=== PATIENT | female | born 1950 | race Caucasian/White ===

== ENCOUNTER 2021-07-04 11:19 | Outpatient (CLI) | payer OTHER, SELFPAY ==
--- NOTE | 2021-07-04 11:24 | CT_ITS ---
STUDY: CARDIAC CALCIUM SCORING - CT CHEST REASON FOR EXAM: Female, 70 years old. HLD. Chest pain. Family history of coronary artery calcification RADIATION DOSAGE (If Supplied By Facility): CTDIvol = ( 12.19 ) mGy, DLP = ( 195.04 ) mGycm TECHNIQUE: Axial non-enhanced images were acquired through the heart for the sole purpose of measuring coronary artery calcium. Individualized dose optimization techniques were used for this CT. COMPARISON: None. FINDINGS: Visualized surrounding anatomy: Normal. Left Main Coronary Artery: 0 Left Anterior Descending Artery: 18.3 Left Circumflex Artery: 0 Right Coronary Artery: Other: Total Calcium Score: 18.3 CT/Limited Chest CT w/CCTA IMPRESSION: A Calcium Score of 18.3 places the patient in the approximate 42 percentile, based on the [facility] data calculator. Please go to: [email or web address] , for a description of the calculator. Electronically Signed: Reagan Smith DO at 23:02 EDT ,
[2021-07-04 11:35] VITALS: BP 103/56; PULSE 63; RESP 14; O2SAT 99; BMI 21.9
--- NOTE | 2021-07-04 17:18 | CA.SCORE ---
Calcium Scoring Date of Study:: 07/04/21 Coronary Calcium Scoring: High-resolution Computed Tomographic imaging of the chest was performed on 07/04/2021 with particular attention paid to the coronary arteries. Images from the examination were analyzed for the presence and extent of coronary artery calcification , using coronary calcium quantification software. The patient tolerated the procedure well and there were no complications. The results of the coronary calcification analysis are provided below. Findings Coronary Artery Left Main (LM): 0 Left Anterior Descending (LAD): 18.3 Left Circumflex (LCX): 0 Right Coronary Artery (RCA): 0 Total Agatston Score: 18.3 Percentile Ranking: According to prepublished reference tables between 25% and 50% of patients of the same gender / similar age had the same / lower scores. Calcium Scoring Interpretation: 0 No identifiable atherosclerotic plaque. Very low cardiovascular disease risk. <5% chance of presence coronary artery disease A Negative Examination 1-10 Minimal Plaque burden. Significant coronary artery disease very unlikely. 11-100 Mild plaque burden. Likely mild or minimal coronary atherosclerosis. 101-400 Moderate plaque burden Moderate non-obstructive coronary artery disease highly likely. Over 400 Extensive plaque burden. High likelihood of at least one significant coronary stenosis (>50% diameter) Calcium Score: 11 - 100 Likely mild or minimal coronary stenosis Conclusion: Continue cardiovascular evaluation / care as deemed appropriate. This note was generated using a voice recognition system and there may be incorrect words, spelling or punctuation that were not noted when reviewing the office note prior to saving.
== END 2021-07-04 23:59 | disposition home or self-care (01) ==
LOC: CT 11:23
PROVIDERS: PCP Family Medicine; Referring Provider Internal Medicine Cardiovascular Disease; Visit Provider Internal Medicine Cardiovascular Disease
DX: R07.9 Chest pain, unspecified (principal); E78.2 Mixed hyperlipidemia; Z82.49 Family history of ischemic heart disease and other diseases of the circulatory system
CPT/HCPCS: 75571; 76380

== ENCOUNTER 2021-07-08 07:29 | Outpatient (CLI) | payer OTHER, SELFPAY ==
--- NOTE | 2021-07-08 13:19 | STRESSREP ---
Stress Test Report Date: 07-08-2021 Procedure: Exercise tolerance test/imaging study Indications: Chest pain Consent: Per the patient Procedure: The patient exercised on a David protocol for 6 minutes completing Stage II achieving a peak heart rate of 131 bpm (86% predicted maximal heart rate) with a peak blood pressure 138/64 mmHg and a peak MET capacity of 7 METs. The baseline ECG demonstrated sinus bradycardia. The peak exercise ECG demonstrated 0.5 mm horizontal/upsloping ST segment depression in leads II, III, aVF, and V3 through V6 with subsequent resolution towards baseline in recovery. There were no cardiac dysrhythmias pretest, during exercise, or recovery. The functional capacity was considered average. There was no complaint of chest discomfort during exercise or recovery. The examination was discontinued secondary to dyspnea and leg fatigue. Impression: 1. Technically adequate (percent predicted maximal heart rate greater than 85%) exercise tolerance test 2. Peak exercise ECG with approximately 0.5 mm horizontal/upsloping ST segment depression in leads II, III, aVF, and V3 through V6 with subsequent resolution towards baseline in recovery 3. There were no cardiac dysrhythmias pretest, during exercise, or recovery 4. Nuclear images pending Myocardial perfusion imaging study: Technique: The patient was injected with 11.7 mCi of technetium 99m Cardiolite and subsequently rest SPECT Cardiolite nuclear imaging was obtained in the horizontal long, vertical long, and short axis views. The patient exercised on a David protocol for 6 minutes completing Stage II achieving a peak heart rate of 131 bpm (86% predicted maximal heart rate) with a peak blood pressure 138/64 mmHg and a peak MET capacity of 7 METs. The patient was injected with 32.8 mCi of technetium 99m Cardiolite and subsequently stress SPECT Cardiolite nuclear imaging was obtained in the horizontal long, vertical long, and short axis views. A gated Cardiolite study at peak stress was obtained. Interpretation: Rest and stress SPECT Cardiolite nuclear imaging status post realignment, normalization, and attenuation correction, demonstrates the appearance of relative uniform tracer uptake and myocardial perfusion appearing within normal limits. There is end systolic thickening and brightening. The gated Cardiolite study demonstrates myocardial thickening and inward wall motion. The reported LVEF is 75%. Impression: 1. Rest and stress SPECT Cardiolite nuclear imaging demonstrate relative uniform tracer uptake and myocardial perfusion appearing within normal limits. 2. The gated Cardiolite study reports an LVEF of 75%. This note was generated with [employer] software. It may contain incorrect words, spelling, and punctuation that were not noted in checking the note before signing.
== END 2021-07-08 23:59 | disposition home or self-care (01) ==
LOC: CVS 07:31
PROVIDERS: PCP Family Medicine; Referring Provider Internal Medicine Cardiovascular Disease; Visit Provider Internal Medicine Cardiovascular Disease
DX: R07.9 Chest pain, unspecified (principal); E78.2 Mixed hyperlipidemia; Z82.49 Family history of ischemic heart disease and other diseases of the circulatory system
CPT/HCPCS: 78452; 93017; A9500; A4216

== ENCOUNTER → 2023-12-24 | Outpatient (CLI) | payer MEDICARE, BC, SELFPAY ==
--- NOTE | 2023-12-24 14:10 | CDU_ITS ---
Reason For Study: Visual disturbance Rt. Velocities/BP Lt. Velocities/BP Prox CCA 86.3/22 cm/sec. Prox CCA 69.6/20.1 cm/sec. Mid CCA 81.5/24.8 cm/sec. Mid CCA 82.8/23.4 cm/sec. Dist CCA 78.7/22 cm/sec. Dist CCA 68.5/15.7 cm/sec. Prox ICA 60.5/11.4 cm/sec. Prox ICA 42.1/12.4 cm/sec. Mid ICA 63/22.3 cm/sec. Mid ICA 60.9/20.4 cm/sec. Dist ICA 82.8/27.8 cm/sec. Dist ICA 85/28.9 cm/sec. Rt. ICA/CCA = 1.02. Lt. ICA/CCA = 1.03. Prox ECA 112.1/15.1 cm/sec. Prox ECA 67.4/11.3 cm/sec. Rt. Vert. 49.8/12.4 cm/sec. Lt. Vert. 45.4/14.6 cm/sec. Right Extracranial There is intimal thickening but no significant atherosclerotic plaque noted in the right common carotid artery. There is intimal thickening but no significant atherosclerotic plaque noted in the right internal carotid artery. There is intimal thickening but no significant atherosclerotic plaque noted in the right external carotid artery. Antegrade flow is noted in the right vertebral artery. Left Extracranial There is intimal thickening but no significant atherosclerotic plaque noted in the left common carotid artery. There is intimal thickening but no significant atherosclerotic plaque noted in the left internal carotid artery. There is intimal thickening but no significant atherosclerotic plaque noted in the left external carotid artery. Antegrade flow is noted in the left vertebral artery. Procedure Carotid Duplex 49040. This is a Carotid Duplex examination using B-mode, color flow and specral Doppler. Exam performed in department. VL/Carotid Duplex Ultrasound Interpretation Summary No significant atherosclerotic plaque or stenosis noted in the internal carotid arteries bilaterally. Flow within the vertebral arteries is antegrade bilaterally. Ordering Physician: Florentino Smart Referring Physician: Yanira Byers Performed By: Domonique Yuen RVT
== END | disposition home or self-care (01) ==
LOC: CVS 14:04
PROVIDERS: PCP Family Medicine; Referring Provider Ophthalmology; Visit Provider Ophthalmology
DX: H53.10 Unspecified subjective visual disturbances (principal)
CPT/HCPCS: 93880